=== PATIENT | female | born 1965 | race Caucasian/White ===

== ENCOUNTER 2018-06-20 21:38 | Emergency (ER) | payer BC ==
[~2018-06-20] VITALS: Ht 162.6 cm; Wt 104.3 kg
[2018-06-20] MEDS ORDERED: IBUPROFEN 200 MG TAB PO STA (22:08)
[2018-06-20] MEDS ORDERED: TETANUS/DIPHTHERIA TOX ADULT 0.5 ML SYR IM STA (22:08)
[2018-06-20] MEDS ORDERED: LIDOCAINE HCL 1% LOCAL INJ 20 ML VIAL INJ STA (22:08)
[2018-06-20] MEDS ORDERED: MUPIROCIN 2% OINT 22 GM TUBE TOP ONE (22:15)
[2018-06-20] MEDS ORDERED: ACETAMINOPHEN 325 MG TAB PO ONE (22:15)
[2018-06-20] MEDS ORDERED: NEOMYCIN/POLYMYX/BACITR OINT 0.9 GM PKT ONE (22:31)
[2018-06-20] MEDS ORDERED: NEOMYCIN/POLYMYX/BACITR OINT 0.9 GM PKT TOP ONE (22:45)
--- NOTE | 2018-06-20 23:16 | Diagnostic Imaging Report ---
EXAM: FINGER RIGHT, AP, lateral and oblique INDICATION: Stuck hand in box, cut fifth digit on glass COMPARISON: None FINDINGS: BONES: No acute fractures. JOINTS: No malalignment. SOFT TISSUES: Normal IMPRESSION: No radiopaque foreign body or fracture of the fifth digit of the right hand. Signed by: Dr. Lindsay Abernathy M.D. on 06/20/2018 11:13 PM
[2018-06-21] MEDS ORDERED: CLINDAMYCIN HCL 150 MG CAP PO ONE (00:15)
== END 2018-06-21 00:27 | disposition home or self-care (01) ==
LOC: ER 21:38
DX: S61.216A Laceration without foreign body of right little finger without damage to nail, initial encounter (principal); W25.XXXA Contact with sharp glass, initial encounter; Y92.008 Other place in unspecified non-institutional (private) residence as the place of occurrence of the external cause
CPT/HCPCS: 12002; 73140; 90471; 90714; 99283; J2001

== ENCOUNTER → 2019-04-12 | Outpatient (CLI) | payer BC | LOC: RAD 15:48 | PROVIDERS: ATTEND Family Medicine | DX: R06.00 Dyspnea, unspecified (principal) | CPT/HCPCS: 93306 ==

== ENCOUNTER 2022-11-02 12:04 | Emergency (ER) | payer BC ==
[~2022-11-02] VITALS: Ht 162.6 cm; Wt 104.3 kg
[2022-11-02] MEDS ORDERED: ASPIRIN 325 MG TAB PO ONE (12:45)
[2022-11-02 13:29] LABS: BASOPHILS # (AUTO) 0.1 (0.0-0.1); BASOPHILS % 1.1 % (0.0-1.0); EOSINOPHILS # (AUTO) 0.2 (0.0-0.4); EOSINOPHILS % 3.2 % (0.0-6.0); HEMATOCRIT 39.9 % (34.2-44.1); HEMOGLOBIN 11.9 g/dL (12.0-16.0); LYMPHOCYTES # (AUTO) 1.6 (1.0-3.2); LYMPHOCYTES % 32.6 % (18.0-39.1); MEAN CORPUSCULAR HEMOGLOBIN 26.8 pg (28-32); MEAN CORPUSCULAR HGB CONC 29.8 g/dL (31-35); MEAN CORPUSCULAR VOLUME 89.9 fL (81-99); MONOCYTES # (AUTO) 0.5 (0.2-0.8); MONOCYTES % 9.9 % (4.4-11.3); NEUTROPHILS # (AUTO) 2.5 (2.1-6.9); NEUTROPHILS % 52.8 % (38.7-80.0); PLATELET COUNT 183 x10e3/uL (140-360); RED BLOOD COUNT 4.44 x10e6/uL (3.6-5.1); RED CELL DISTRIBUTION WIDTH 14.7 % (11.7-14.4)
[2022-11-02 13:42] LABS: INR 0.97; PARTIAL THROMBOPLASTIN TIME 29.4 seconds (23.8-35.5); PROTHROMBIN TIME 13.1 seconds (11.9-14.5)
[2022-11-02 13:50] LABS: ALBUMIN 3.5 g/dL (3.5-5.0); ALBUMIN/GLOBULIN RATIO 1.2 (0.8-2.0); ANION GAP 15.5 mmol/L (8-16); CALCIUM 8.7 mg/dL (8.4-10.2); CREATININE, SERUM 0.82 mg/dL (0.57-1.11); POTASSIUM 4.5 mmol/L (3.5-5.1)
[2022-11-02 14:29] VITALS: BP 114/79
== END 2022-11-02 14:30 | disposition home or self-care (01) ==
LOC: ER 12:16
DX: I10 Essential (primary) hypertension (principal); R07.9 Chest pain, unspecified; E11.9 Type 2 diabetes mellitus without complications; Z88.6 Allergy status to analgesic agent; Z88.8 Allergy status to other drugs, medicaments and biological substances
CPT/HCPCS: 36415; 71045; 80053; 83880; 84484; 85025; 85379; 85610; 85730; 93005; 99283

== ENCOUNTER 2024-09-15 13:54 | Inpatient (IN) | payer BC ==
[~2024-09-15] VITALS: Ht 162.6 cm; Wt 104.3 kg
[2024-09-15] VITALS (7 sets, daily range): BP systolic 97–118; BP diastolic 57–63; PULSE 79–100; RESP 16–18; TEMP 97.3–98.8; O2SAT 98
[2024-09-15 14:45] LABS: BASOPHILS % 0.4 % (0.0-1.0); EOSINOPHILS # (AUTO) 0.3 (0.0-0.4); EOSINOPHILS % 3.5 % (0.0-6.0); HEMATOCRIT 40.9 % (34.2-44.1); HEMOGLOBIN 12.8 g/dL (12.0-16.0); LYMPHOCYTES # (AUTO) 1.1 (1.0-3.2); LYMPHOCYTES % 11.6 % (18.0-39.1); MEAN CORPUSCULAR HEMOGLOBIN 29.2 pg (28-32); MEAN CORPUSCULAR HGB CONC 31.3 g/dL (31-35); MEAN CORPUSCULAR VOLUME 93.4 fL (81-99); MONOCYTES % 11.1 % (4.4-11.3); NEUTROPHILS # (AUTO) 6.6 (2.1-6.9); NEUTROPHILS % 73.1 % (38.7-80.0); PLATELET COUNT 197 x10e3/uL (140-360); RED BLOOD COUNT 4.38 x10e6/uL (3.6-5.1); RED CELL DISTRIBUTION WIDTH 15.1 % (11.7-14.4); WHITE BLOOD COUNT 9.08 x10e3/uL (4.8-10.8)
[2024-09-15 14:55] LABS: INR 0.98; PROTHROMBIN TIME 13.5 seconds (11.9-14.5)
[2024-09-15 14:56] LABS: PARTIAL THROMBOPLASTIN TIME 31.9 seconds (23.8-35.5)
[2024-09-15 15:02] LABS: ALBUMIN/GLOBULIN RATIO 0.8 (0.8-2.0); ANION GAP 13.2 mmol/L (8-16); CALCIUM 8.9 mg/dL (8.4-10.2); CREATININE, SERUM 1.34 mg/dL (0.57-1.11); POTASSIUM 4.2 mmol/L (3.5-5.1); TOTAL PROTEIN 6.8 g/dL (6.5-8.1)
[2024-09-15] MEDS ORDERED: IOPAMIDOL 370 MG/ML 100 ML INFUS..BTL INJ ONE (15:12)
[2024-09-15] MEDS ORDERED: ONDANSETRON HCL INJ 2MG/ML 2ML 2 MG/ML VIAL IV PRN (16:15)
[2024-09-15] MEDS ORDERED: SODIUM CHLORIDE FLUSH 10 ML SYR INJ PRN (16:15)
[2024-09-15] MEDS ORDERED: CYMBALTA30 MG (17:17)
[2024-09-15] MEDS ORDERED: ZETIA10 MG PO (17:17)
[2024-09-15] MEDS ORDERED: LISINOPRIL10 MG PO (17:17)
[2024-09-15] MEDS ORDERED: LASIX20 MG PO (17:17)
[2024-09-15] MEDS ORDERED: FAMOTIDINE20 MG PO (17:17)
[2024-09-15] MEDS ORDERED: PROTONIX20 MG PO (17:17)
[2024-09-15] MEDS ORDERED: FLUOXETINE HCL20 MG PO (17:17)
[2024-09-15] MEDS ORDERED: INDERAL LA60 MG PO (17:17)
[2024-09-15] MEDS: Vancomycin IV 1 GM in SODIUM CHLORIDE 0.9% 250ML 250 ML IV ONE (20:15)
[2024-09-15] MEDS: HYDROCODONE/APAP 5MG-325MG TAB PO PRN (20:15)
[2024-09-15] MEDS: SODIUM CHLORIDE 0.9% 1000ML 1,000 ML IV ONE (21:14)
[2024-09-15] MEDS: HYDROCODONE/APAP 5MG-325MG TAB PO ONE (21:14)
[2024-09-16 06:05] LABS: ALBUMIN 2.8 g/dL (3.5-5.0); ALBUMIN/GLOBULIN RATIO 0.8 (0.8-2.0); ANION GAP 14.9 mmol/L (8-16); CALCIUM 8.7 mg/dL (8.4-10.2); CREATININE, SERUM 1.32 mg/dL (0.57-1.11); POTASSIUM 3.9 mmol/L (3.5-5.1); TOTAL PROTEIN 6.1 g/dL (6.5-8.1)
[2024-09-16 06:29] VITALS: BP 101/61; PULSE 75; RESP 16; TEMP 98.5; O2SAT 100
[2024-09-16 07:40] VITALS: BP 111/75; PULSE 81; RESP 19; TEMP 97.9; O2SAT 100
[2024-09-16 08:12] LABS: BASOPHILS # (AUTO) 0.1 (0.0-0.1); BASOPHILS % 0.8 % (0.0-1.0); EOSINOPHILS # (AUTO) 0.6 (0.0-0.4); EOSINOPHILS % 7.5 % (0.0-6.0); HEMATOCRIT 37.2 % (34.2-44.1); HEMOGLOBIN 11.5 g/dL (12.0-16.0); LYMPHOCYTES # (AUTO) 1.8 (1.0-3.2); LYMPHOCYTES % 24.4 % (18.0-39.1); MEAN CORPUSCULAR HEMOGLOBIN 29.3 pg (28-32); MEAN CORPUSCULAR HGB CONC 30.9 g/dL (31-35); MEAN CORPUSCULAR VOLUME 94.9 fL (81-99); MONOCYTES # (AUTO) 0.8 (0.2-0.8); MONOCYTES % 11.2 % (4.4-11.3); NEUTROPHILS # (AUTO) 4.1 (2.1-6.9); NEUTROPHILS % 55.7 % (38.7-80.0); PLATELET COUNT 202 x10e3/uL (140-360); RED BLOOD COUNT 3.92 x10e6/uL (3.6-5.1); RED CELL DISTRIBUTION WIDTH 15.5 % (11.7-14.4); WHITE BLOOD COUNT 7.43 x10e3/uL (4.8-10.8)
[2024-09-16] MEDS: Vancomycin IV 1 GM in SODIUM CHLORIDE 0.9% 250ML 250 ML IV SCH (08:21)
[2024-09-16] MEDS: PANTOPRAZOLE SOD 40 MG TABEC PO SCH (08:22)
[2024-09-16] MEDS: DULOXETINE HCL 30 MG DELAYED RELEASE PO SCH (08:22)
[2024-09-16 08:45] VITALS: BP 111/75; PULSE 81; RESP 19; TEMP 97.9; O2SAT 100
[2024-09-16 11:47] VITALS: BP 99/53; PULSE 73; RESP 18; TEMP 98.9; O2SAT 98
[2024-09-16 15:36] VITALS: BP 99/61; PULSE 70; RESP 17; TEMP 98.1; O2SAT 95
[2024-09-16 20:00] VITALS: BP 124/76; PULSE 84; RESP 18; TEMP 98; O2SAT 100
[2024-09-16] MEDS: FLUOXETINE HCL 20 MG CAP PO SCH (20:31)
[2024-09-16] MEDS: FAMOTIDINE 20 MG TAB PO SCH (20:32)
[2024-09-16] MEDS: EZETIMIBE 10 MG TAB PO SCH (21:00)
[2024-09-17] VITALS (9 sets, daily range): BP systolic 121–139; BP diastolic 62–86; PULSE 85–94; RESP 18–20; TEMP 97.1–98.7; O2SAT 96–100
[2024-09-18] VITALS (7 sets, daily range): BP systolic 131–153; BP diastolic 74–95; PULSE 88–101; RESP 18–20; TEMP 97.2–98.6; O2SAT 97–100
[2024-09-18] MEDS: SODIUM CHLORIDE 0.9% 250ML 250 ML ONE (01:34)
[2024-09-19] VITALS: BP 136/84; PULSE 88; RESP 19; TEMP 97.3; O2SAT 100
[2024-09-19 05:52] VITALS: BP 141/80; PULSE 93; RESP 16; TEMP 98; O2SAT 98
[2024-09-19 05:56] LABS: BASOPHILS % 0.7 % (0.0-1.0); EOSINOPHILS # (AUTO) 0.4 (0.0-0.4); EOSINOPHILS % 6.9 % (0.0-6.0); HEMATOCRIT 36.4 % (34.2-44.1); HEMOGLOBIN 11.4 g/dL (12.0-16.0); LYMPHOCYTES # (AUTO) 1.5 (1.0-3.2); LYMPHOCYTES % 28.2 % (18.0-39.1); MEAN CORPUSCULAR HEMOGLOBIN 29.3 pg (28-32); MEAN CORPUSCULAR HGB CONC 31.3 g/dL (31-35); MEAN CORPUSCULAR VOLUME 93.6 fL (81-99); MONOCYTES # (AUTO) 0.7 (0.2-0.8); MONOCYTES % 12.1 % (4.4-11.3); NEUTROPHILS # (AUTO) 2.7 (2.1-6.9); NEUTROPHILS % 51.4 % (38.7-80.0); PLATELET COUNT 234 x10e3/uL (140-360); RED BLOOD COUNT 3.89 x10e6/uL (3.6-5.1); RED CELL DISTRIBUTION WIDTH 14.8 % (11.7-14.4); WHITE BLOOD COUNT 5.35 x10e3/uL (4.8-10.8)
[2024-09-19 06:35] LABS: ALBUMIN/GLOBULIN RATIO 0.9 (0.8-2.0); ANION GAP 12.7 mmol/L (8-16); BILIRUBIN,TOTAL 0.4 mg/dL (0.2-1.2); CREATININE, SERUM 1.21 mg/dL (0.57-1.11); POTASSIUM 3.7 mmol/L (3.5-5.1); TOTAL PROTEIN 6.2 g/dL (6.5-8.1)
[2024-09-19 08:00] VITALS: BP 147/95; PULSE 87; RESP 17; TEMP 98; O2SAT 100
[2024-09-19 08:45] VITALS: BP 147/95; PULSE 87; RESP 17; TEMP 98; O2SAT 100
[2024-09-19 12:37] VITALS: BP 128/70; PULSE 84; RESP 18; TEMP 98; O2SAT 97
[2024-09-19] MEDS ORDERED: DOXYCYCLINE HY100 MG PO (15:40)
[2024-09-19] MEDS ORDERED: ONDANSETRON HCL 4 MG ORAL DISINTEGRATING TAB PO PRN (16:30)
[2024-09-19 16:35] VITALS: BP 165/96; PULSE 85; RESP 18; TEMP 98.5; O2SAT 99
== END 2024-09-19 17:07 | disposition home health service (06) | DRG 603 ==
LOC: ER 14:03 → ERHOLD 16:14 → MED/SURG2 17:19 → OBSVTOIN 09-18 08:15
PROVIDERS: ADMIT Family Medicine; ATTEND Family Medicine
DX: L02.416 Cutaneous abscess of left lower limb (principal); N17.9 Acute kidney failure, unspecified; L03.116 Cellulitis of left lower limb; B95.62 Methicillin resistant Staphylococcus aureus infection as the cause of diseases classified elsewhere; E11.22 Type 2 diabetes mellitus with diabetic chronic kidney disease; I12.9 Hypertensive chronic kidney disease with stage 1 through stage 4 chronic kidney disease, or unspecified chronic kidney disease; N18.9 Chronic kidney disease, unspecified; E78.5 Hyperlipidemia, unspecified; E66.01 Morbid (severe) obesity due to excess calories; Z68.39 Body mass index [BMI] 39.0-39.9, adult; K21.9 Gastro-esophageal reflux disease without esophagitis; F32.9 Major depressive disorder, single episode, unspecified; F41.9 Anxiety disorder, unspecified; Z79.899 Other long term (current) drug therapy
CPT/HCPCS: 36415; 72193; 80053; 80202; 82948; 85025; 85610; 85730; 87040; 87071; 87186; 87205; 99252; 99284; G0378; J2405; J2543; J7050; Q9967